=== PATIENT | female | born 1975 | race Hispanic/Latino ===

== ENCOUNTER 2017-07-11 09:42 | Outpatient (CLI) | payer OTHER ==
--- NOTE | 2017-07-11 10:00 | RAD ---
CHEST TWO VIEWS INDICATION: Dyspnea. COMPARISON: None. FINDINGS: Lungs are clear. No pneumothorax or effusion. Cardiac silhouette and mediastinal contours are withi n normal limits. IMPRESSION: No acute cardiopulmonary abnormality. POS: [facility]
== END 2017-07-11 09:43 | disposition home or self-care (01) ==
LOC: RAD 09:42
PROVIDERS: ATTEND Physician Assistant
DX: T14.8XXA Other injury of unspecified body region, initial encounter (principal)
CPT/HCPCS: 71020

== ENCOUNTER 2021-01-06 09:11 | Outpatient (CLI) | payer OTHER | END 2021-01-06 09:12 | disposition home or self-care (01) | LOC: BICULT 09:11 | PROVIDERS: ATTEND Physician Assistant Medical | DX: R10.13 Epigastric pain (principal) | CPT/HCPCS: 76705 ==

== ENCOUNTER 2021-04-09 09:08 | Outpatient (CLI) | payer OTHER | END 2021-04-09 09:09 | disposition home or self-care (01) | LOC: BICMAMMO 09:08 → EDSTATUS 09:30 | PROVIDERS: ATTEND Physician Assistant | DX: R92.8 Other abnormal and inconclusive findings on diagnostic imaging of breast (principal) | CPT/HCPCS: G0279 ==

== ENCOUNTER 2021-05-21 08:21 | Outpatient (CLI) | payer OTHER | END 2021-05-21 08:22 | disposition home or self-care (01) | LOC: BICULT 08:21 | PROVIDERS: ATTEND Physician Assistant | DX: R10.2 Pelvic and perineal pain (principal); N83.201 Unspecified ovarian cyst, right side | CPT/HCPCS: 76700; 76856 ==